=== PATIENT | female | born 1995 | race Caucasian/White ===

== ENCOUNTER → 2018-04-22 01:01 | Outpatient (CLI) | payer BC, SELFPAY ==
[2018-04-26 15:55] LABS: HPV Reflexed? NOT INDICATED
== END ==
PROVIDERS: Family Provider Family Medicine; PCP Family Medicine; Visit Provider Obstetrics & Gynecology
DX: Z12.4 Encounter for screening for malignant neoplasm of cervix (principal)
CPT/HCPCS: 88175; G0145

== ENCOUNTER → 2020-08-28 | Outpatient (CLI) | payer BC, SELFPAY | END | disposition home or self-care (01) | PROVIDERS: Visit Provider Obstetrics & Gynecology | DX: R30.0 Dysuria (principal) | CPT/HCPCS: 87086; 87088; 87186 ==

== ENCOUNTER 2022-01-22 10:04 | Emergency (ER) | payer BC, SELFPAY ==
[2022-01-22 10:04] VITALS: BP 134/72; PULSE 70; RESP 17; TEMP 36.3; O2SAT 100; BMI 33.7
[2022-01-22 10:29] LABS: Bacteria 0 SEEN /hpf (None Seen); Mucous, Urine 0 SEEN /hpf (<or=2+); Red Blood Cells-Urine 0 SEEN /hpf (0-5); Squamous Epithelial Cells - UA 0 SEEN /hpf (5-10); White Blood Cells 0 SEEN /hpf (0-5)
[2022-01-22 10:34] LABS: Color, Urine Yellow (Yellow); Glucose, Dipstick Normal (Normal); Ketone-Dipstick Negative (Negative); Leukocyte Esterase-Dipstick 25 /ul (Negative); Nitrite-Dipstick Negative (Negative); Occult Blood-Urine Negative /ul (Negative); Protein-Dipstick Negative (Negative); Specific Gravity, Urine 1.005 (1.002-1.030); Urine Bilirubin Dipstick Negative (Negative); Urine Clarity Clear (Clear); Urine Urobilinogen Normal (Normal)
[2022-01-22 10:36] LABS: Internal QC Validated? YES +Cl - CLEAR BKGD; Pregnancy, Urine Negative Negative
--- NOTE | 2022-01-22 10:42 | EX.ED.DYSGE1 ---
HPI History of Present Illness Chief Complaint: Abd Pain Informant: patient Narrative Narrative: 26-year-old female denies any significant past medical history (on minocycline and spironolactone for acne) presenting with lower abdominal pain. Patient states she developed lower central abdominal pain around 5 AM this morning. She had got up and was using the restroom when she felt sharp pain. It was so bad that she felt she was going to pass out had associated nausea. She laid back down and the pain got better. She now describes as a dull ache. The pain is persisted so she came in to be evaluated further. She denies any abnormal vaginal bleeding or discharge. Her last menstrual period was 2 or 3 weeks ago. She is not concerned for . She denies any radiation of pain, hematuria or dysuria. She notes she was urinating when the pain first started. She denies any current nausea or vomiting. She states she is been overall tired lately but did not think that was outside of the norm. No other complaints at this time. PFSH PFSH Home Medications minocycline 50 mg capsule 50 mg PO DAILY 01/13/22 [History Last Taken Unknown] spironolactone 25 mg tablet 25 mg PO DAILY 01/13/22 [History Last Taken Unknown] ibuprofen 600 mg tablet 600 mg PO Q6H PRN pain #20 tabs 01/22/22 [Rx Last Taken Unknown] Allergy/AdvReac Type Severity Reaction Status Date / Time No Known Allergies Allergy Verified 01/22/22 10:04 Surgical History H/O adenoidectomy Hx of tonsillectomy Social History Smoking Status: Never smoker ROS ROS ED Constitutional Constitutional ED: Reports sweats; Denies chills or fever(s) Eyes Eyes: Denies blurry vision ENT ENT ED: Denies rhinorrhea or sore throat Cardiovascular Cardiovascular: Denies chest pain or palpitations Respiratory/Chest Respiratory/Chest: Denies cough Gastrointestinal Gastrointestinal: Reports abdominal pain; Denies constipation, diarrhea, nausea or vomiting Genitourinary Genitourinary ED: Denies dysuria, hematuria or urinary frequency Musculoskeletal Musculoskeletal: Denies arthralgias or myalgias Integumentary Denies rash Neurologic Neurologic: Denies headache(s) Psychiatric Psychiatric: Denies anxiety Hematologic/Lymphatic Hematologic/Lymphatic: Denies easy bleeding or easy bruising EXAM Physical Exam Const Vital Signs: 01/22/22 10:04 Temperature 97.4 F L Temperature Source Temporal Pulse Rate 70 Respiratory Rate 17 Blood Pressure 134/72 H Blood Pressure Mean 92 Pulse Ox 100 Oxygen Delivery Method Room Air Positive well nourished and well developed General Appearance ED: well developed and NAD HEENT Reports moist mucous membranes Eyes PERRL and EOMs intact bilaterally Neck supple Neck Narrative: Normal range of motion Chest Wall inspection of chest normal and palpation of chest normal Resp normal respiratory effort and clear to auscultation bilaterally Cardio regular rate and regular rhythm GI non-distended and no masses GI Narrative: No rebound tenderness. Palpation: soft and tender RLQ and suprapubic; Negative for guarding Back/Spine no CVA tenderness Extremity normal to inspection General Extremety ED: Negative for edema General Extremity: Negative for edema Neuro oriented x3 and CN's II-XII intact bilaterally Psych mental status grossly normal Skin no rashes or lesions noted and no wounds MDM MDM MDM Narrative Medical decision making narrative: Patient is evaluated for sudden onset of severe suprapubic abdominal pain that is now a dull pain. Abdominal exam is pretty benign. Patient does not want anything for pain in the emergency room. Differential includes ruptured cyst, mesenteric adenitis as well as appendicitis. Given the mildness of her symptoms right now have a lower suspicion for ovarian torsion. Lab work largely unremarkable with normal CBC, CMP and lipase. Urinalysis is not consistent with infection urine is negative. Do not suspect ectopic given the negative hCG. CT of the abdomen pelvis shows a normal appendix but does show a small amount of free fluid in the cul-de-sac as well as a 2.4 cm x 1.6 cm right ovarian cyst. I suspect patient has a ruptured ovarian cyst that caused her symptoms. She is given referral for gynecology for outpatient follow-up. Instructed to take ibuprofen as needed for pain. Counseled on return precautions. Lab Data Attestation: I reviewed the patient's lab results. Labs: Laboratory Results - last 24 hr 01/22/22 01/22/22 01/22/22 10:20 10:32 10:32 WBC 9.4 RBC 4.89 Hgb 14.3 Hct 41.8 MCV 85.5 MCH 29.2 MCHC 34.2 RDW Std Deviation 37.3 RDW Coeff of [place]onna 11.9 Plt Count MPV 10.1 Immature Gran % (Auto) 0.900 Neut % (Auto) 65.0 Lymph % (Auto) 26.2 [place] % (Auto) 6.2 Eos % (Auto) 1.3 Baso % (Auto) 0.4 Absolute Neuts (auto) 6.1 Absolute Lymphs (auto) 2.46 Nucleated RBC % 0 Platelet Estimate ADEQUATE Sodium 138 Potassium 4.3 Chloride 106 Carbon Dioxide 26.0 Anion Gap 6 BUN 12 Creatinine 0.98 Estim Creat Clear Calc 79.65 Est GFR (MDRD) Af Amer 89 Est GFR (MDRD) Non-Af 74 BUN/Creatinine Ratio 12.2 Glucose 85 Calcium 9.7 Total Bilirubin 0.40 AST 15 ALT 20 Alkaline Phosphatase 67 Total Protein 7.9 Albumin 4.2 Globulin 3.7 Albumin/Globulin Ratio 1.1 Lipase 71 L Urine Color Yellow Urine Clarity Clear Urine pH 7.0 Ur Specific [place] 1.005 Urine Protein Negative Urine Glucose (UA) Normal Urine Ketones Negative Urine Occult Blood Negative Urine Nitrite Negative Urine Bilirubin Negative Urine Urobilinogen Normal Ur Leukocyte Esterase 25 H Urine RBC 0 SEEN Urine WBC 0 SEEN Ur Squamous Epith Cells 0 SEEN Urine Bacteria 0 SEEN Urine Mucus 0 SEEN Urine Test Negative Radiography Diagnostic Testing: Clinical Impression(s) from Imaging Studies Abdomen/Pelvis CT 01/22/22 11:14 IMPRESSION: Small amount of free fluid is seen in the cul-de-sac. 2.4 cm x 1.6 cm right ovarian cyst. Minimal degree of bibasilar dependent atelectasis slightly worse on the left side. Electronically Signed: Salomón Marcum MD at 12:03 EDT , Discharge Plan Triage Chief Complaint: Abd Pain ED Provider: Kiera Marmolejo Dx/Rx/DC Orders Clinical Impression: Lower abdominal pain, Ovarian cyst Instructions: ED Ovarian Cyst Prescriptions: New ibuprofen 600 mg tablet 600 mg PO Q6H PRN (Reason: pain) Qty: 20 0RF No Action spironolactone 25 mg tablet 25 mg PO DAILY minocycline 50 mg capsule 50 mg PO DAILY Primary Care Provider: Tammy Guerra Referrals: Pierre Schrader MD [Med Staff - Active Staff] - 3-5 Days if not improving Tammy Guerra MD [Primary Care Provider] - Disposition Disposition: Home, Self Care Discharge Date/Time: 01/22/22 13:03
--- NOTE | 2022-01-22 11:14 | CT_ITS ---
STUDY: CT ABDOMEN AND PELVIS WITH CONTRAST REASON FOR EXAM: Female, 26 years old. Lower abdominal pain. Nausea. RADIATION DOSAGE (If Supplied By Facility): CTDIvol = ( 17.930 ) mGy, DLP = ( 971.94 ) mGycm TECHNIQUE: Transaxial images were obtained from the dome of the diaphragm to the symphysis pubis without oral contrast. IV 100mL Isovue-300 was administered. Sagittal and coronal images were reconstructed. Individualized dose optimization techniques were used for this CT. COMPARISON: None. FINDINGS: Minimal degree of bibasilar atelectasis slightly more prominent on the left side. The visualized portions of the heart are within normal limits. Normal liver. Normal gallbladder and extrahepatic biliary system. Normal spleen. Normal pancreas. Normal bilateral adrenal glands. Normal right kidney. Normal left kidney. There is a small hiatal hernia. Normal small intestine. Normal colon. The appendix is visualized and appears normal. Normal abdominal aorta. Normal inferior vena cava. Normal retroperitoneum. Normal urinary bladder. Small amount of free fluid is seen in the cul-de-sac. There is a 2.4 cm x 1.6 cm cyst. The right ovary. Normal abdominal wall. Normal osseous structures. CT/Abdomen/Pelvis W IV Cont ONLY IMPRESSION: Small amount of free fluid is seen in the cul-de-sac. 2.4 cm x 1.6 cm right ovarian cyst. Minimal degree of bibasilar dependent atelectasis slightly worse on the left side. Electronically Signed: Salomón Marcum MD at 12:03 EDT ,
[2022-01-22 11:28] LABS: Absolute Lymphocyte Count 2.46 X10^3/uL (0.83-4.51); Absolute Neutrophil Count 6.1 X10^3/uL (2.0-7.7); Basophil# 0.04 X10^3/uL; Basophil% 0.4 % (0-1); Eosinophil# 0.12 X10^3/uL; Eosinophils% 1.3 % (0-5); Hematocrit 41.8 % (37-47); Hemoglobin 14.3 g/dL (12.0-15.0); Lymphocyte # 2.46 X10^3/ul (0.83-4.51); Lymphocyte % 26.2 % (19-41); Mean Corp Hgb Conc 34.2 g/dL (32-36); Mean Corpuscular Hgb 29.2 pg (27.0-32.0); Mean Corpuscular Volume 85.5 fL (81-99); Mean Platelet Vol. 10.1 fl (6.2-12.0); Monocyte# 0.58 X10^3/uL; Monocyte% 6.2 % (0-10); NRBC Flagged by Analyzer 0 % (0-5); Neutrophil # 6.11 X10^3/uL (2.7-7.7); POSITIVE COUNT YES; RBC Distribution Width CV 11.9 % (11.6-14.6); RBC Distribution Width SD 37.3 fl (35.1-43.9); Red Blood Count 4.89 M/mm3 (4.2-5.4); White Blood Count 9.4 K/mm3 (4.4-11.0)
[2022-01-22 11:46] LABS: ALB/GLOB Ratio 1.1 RATIO (0.9-2.4); AST(SGOT) 15 U/L (15-37); Alanine Aminotransfer ALT/SGPT 20 U/L (13-56); Albumin, Serum 4.2 g/dL (3.2-5.0); Alkaline Phosphatase 67 U/L (45-117); Anion Gap 6 (5-15); BUN 12 mg/dL (7-18); BUN/Creat Ratio 12.2 RATIO (10-20); Calcium,Total 9.7 mg/dL (8.5-10.1); Chloride 106 mmol/L (98-107); Creatinine, Serum 0.98 mg/dL (0.55-1.02); EST Glomerular Filtration Rate 74 mL/min (>60); Est Glom Filt Rate - Afr Amer 89 mL/min (>60); Estimated Creatinine Clearance 79.65 ml/min; Globulin 3.7 g/dL (2.2-4.2); Glucose 85 mg/dL (74-106); Lipase 71 U/L (73-393); Potassium 4.3 mmol/L (3.5-5.1); Protein, Total 7.9 g/dL (6.4-8.2); Sodium Level 138 mmol/L (136-145)
[2022-01-22 11:55] LABS: Differential Indicated SCAN CRITERIA MET
[2022-01-22 11:56] LABS: Platelet Estimate ADEQUATE (ADEQ)
[2022-01-22] MEDS: Ketorolac 15 MG/ML Vial IV (12:57)
== END 2022-01-22 13:03 | disposition home or self-care (01) ==
PROVIDERS: Emergency Provider Emergency Medicine; PCP Family Medicine; Visit Provider Emergency Medicine
DX: N83.201 Unspecified ovarian cyst, right side (principal)
CPT/HCPCS: 74177; 80053; 81001; 81025; 83690; 85025; 96374; 99282; Q9967; A4216